=== PATIENT | male | born 1995 | race African-American/Black ===

== ENCOUNTER 2018-01-06 15:39 | Emergency (ER) | payer SELFPAY ==
[~2018-01-06] VITALS: Ht 182.9 cm; Wt 80.0 kg
[2018-01-06 15:49] VITALS: BP 142/60
--- NOTE | 2018-01-06 15:52 | NUR ---
PT AMBULATES TO CHAIR A
--- NOTE | 2018-01-06 15:55 | NUR ---
22Y/M PT STATES HE WOKE UP YESTERDAY MORNING C/O BACK PAIN BELOW THE SHOULDER BLADE; DENIES INJURY.[id number] WITH EVEN AND STEADY GAIT; PATIENT STATES PAIN OF 6/10 AT THIS TIME; VSS; PATIENT POSITIONED FOR COMFORT; ER MD MADE AWARE OF PT STATUS.
--- NOTE | 2018-01-06 15:57 | NUR ---
Patient being evaluated by physician at bedside.
[2018-01-06] MEDS ORDERED: IBUPROFEN 800 MG TAB PO ONE (16:00)
[2018-01-06 16:15] VITALS: BP 140/62
== END 2018-01-06 16:15 | disposition home or self-care (01) ==
LOC: MED 15:39
DX: M62.838 Other muscle spasm (principal)
CPT/HCPCS: 71045; 99283